=== PATIENT | female | born 1990 | race Caucasian/White ===

== ENCOUNTER → 2016-05-20 | Outpatient (CLI) | payer BC ==
[~2016-05-20] MED LIST: ALPR1TAB3 PO; BACL10TA PO; DICL50TA3 PO; FLUO20CA35 PO; ONDA4TAB46 PO; PRLSR20 PO; PROP80TA2 PO; SUMA100T16 PO
[2016-05-20 16:58] LABS: BASO % 0.2 %; BASO ABS # 0.01 K/uL (0-0.2); COMPLETE YES; EOS % 0.2 %; HEMATOCRIT 39.2 % (37-47); IG% 0.2 %; LYMPH % 19.4 %; LYMPH ABS # 1.26 K/uL (1.2-3.4); MEAN CELL VOLUME 95.4 fL (80-100); MEAN CORPUSCULAR HEMOGLOBIN 32.6 pg (25-34); MEAN CORPUSCULAR HGB CONC 34.2 g/dl (32-36); MEAN PLATELET VOLUME 10.5 fL (7.4-10.4); MONO % 11.9 %; NEUT % 68.1 %; PLATELET COUNT 199 K/uL (130-400); RED BLOOD COUNT 4.11 M/uL (4.2-5.4); WHITE BLOOD COUNT 6.48 K/uL (4.8-10.8)
--- NOTE | 2016-05-24 11:27 | CODING QUERY NO DIAGNOSIS ---
: 1990 TREATMENT RENDERED WITHOUT A DIAGNOSIS To promote full compliance with coding requirements relating to patient care, physician participation is requested in all cases of herb digger uncertainty. Please assist us with providing a diagnosis/symptom for the test(s) below: A diagnosis/symptom was not documented on your Order. A valid diagnosis/symptom is required to bill all insurances. Please remember that we are unable to code a diagnosis of rule out, probable, possible, questionable, or suspected. Tests that require a diagnosis: DOS: 05/20/16 * C-Reactive Protein DIAGNOSIS: * CBC W/Auto Differential DIAGNOSIS: * Erythrocyte Sedimentation Rate DIAGNOSIS: Provider Signature: Date: Thank you Johnna Rodriguez Health Information Management Once completed, please kindly fax back to [phone] For questions please call [phone]
== END | disposition home or self-care (01) ==
LOC: C.LABBC 12:31
PROVIDERS: ATTEND Anesthesiology
DX: L53.9 Erythematous condition, unspecified (principal); M54.2 Cervicalgia; G43.709 Chronic migraine without aura, not intractable, without status migrainosus; R51 Headache; M50.80 Other cervical disc disorders, unspecified cervical region